=== PATIENT | female | born 1985 | race African-American/Black ===

== ENCOUNTER 2023-12-27 11:32 | Emergency (ER) | payer MEDICAID ==
[~2023-12-27] VITALS: Ht 167.6 cm; Wt 57.0 kg
[2023-12-27] MEDS: FLEET ENEMA(ADULT) 135 ML PR ONE (14:43)
[2023-12-27] MEDS ORDERED: LACT10PA2 PO (16:23)
[2023-12-27 16:42] VITALS: BP 158/81; PULSE 83; RESP 16; O2SAT 100
== END 2023-12-27 17:04 | disposition home or self-care (01) ==
LOC: ER 11:32
DX: K59.00 Constipation, unspecified (principal); Z86.73 Personal history of transient ischemic attack (TIA), and cerebral infarction without residual deficits
CPT/HCPCS: 74176

== ENCOUNTER 2024-01-04 11:07 | Emergency (ER) | payer MEDICAID ==
[~2024-01-04] VITALS: Ht 167.6 cm; Wt 57.0 kg
[~2024-01-04 11:07] MED LIST: LACT10PA2 PO
[2024-01-04 11:44] VITALS: BP 117/71; PULSE 118; RESP 16; TEMP 98; O2SAT 97
[2024-01-04] MEDS ORDERED: CEPH500C PO (14:20)
[2024-01-04] MEDS: cefTRIAXone SOD 1,000 MG VL IM ONE (14:55)
== END 2024-01-04 14:59 | disposition home or self-care (01) ==
LOC: ER 11:07
DX: K59.00 Constipation, unspecified (principal); N39.0 Urinary tract infection, site not specified
CPT/HCPCS: 51702; 74176; 81002; 96372; 99285; J0696

== ENCOUNTER 2024-02-14 21:13 | Emergency (ER) | payer MEDICAID ==
[~2024-02-14] VITALS: Ht 167.6 cm; Wt 56.8 kg
[~2024-02-14 21:13] MED LIST changes: +CEPH500C PO
[2024-02-15 04:10] VITALS: BP 129/78; PULSE 79; RESP 18; TEMP 98.5
[2024-02-15] MEDS: ACETAMINOPHEN 500 MG TAB PO ONE (04:37)
[2024-02-15] MEDS ORDERED: CEFP200T15 PO (04:43)
== END 2024-02-15 06:29 | disposition home or self-care (01) ==
LOC: ER 21:13
DX: T83.091A Other mechanical complication of indwelling urethral catheter, initial encounter (principal); R10.2 Pelvic and perineal pain; Z86.73 Personal history of transient ischemic attack (TIA), and cerebral infarction without residual deficits